=== PATIENT | male | born 1950 | race Caucasian/White ===

== ENCOUNTER 2019-05-22 18:01 | Emergency (ER) | payer MEDICARE, SELFPAY ==
[2019-05-22 18:03] VITALS: BP 188/78; PULSE 51; RESP 18; TEMP 36.8; O2SAT 96; BMI 23.7
--- NOTE | 2019-05-22 18:32 | RAD_ITS ---
STUDY: X-RAY CHEST REASON FOR EXAM: Male, 68 years old. CHEST PAINS. TECHNIQUE: AP portable COMPARISON: None. FINDINGS: There is mild subsegmental atelectasis in both lower lobes greater on the left.. There is no demonstrated pleural abnormality. Normal size heart. Normal mediastinum and chitra. Normal visualized pulmonary arteries. Normal visualized aortic arch and descending thoracic aorta. Normal visualized thoracic spine. Normal visualized ribs, clavicles, and shoulders. There is no demonstrated abnormality of the visualized soft tissue structures of the upper abdomen. RAD/Chest 1 View (Portable) IMPRESSION: Mild bilateral lower lobe atelectasis. Electronically Signed: Joshua Freire MD at 19:21 EST , Service support ,
--- NOTE | 2019-05-22 18:32 | EKG12_ITS ---
Test Reason : CP Blood Pressure : / mmHG Vent. Rate : 046 BPM Atrial Rate : 046 BPM P-R Int : 154 ms QRS Dur : 088 ms QT Int : 442 ms P-R-T Axes : 070 -57 008 degrees QTc Int : 386 ms Sinus bradycardia Left axis deviation Possible Inferior infarct , age undetermined Possible Anterior infarct , age undetermined Abnormal ECG Confirmed by BRYCE RICHARDSON, MARIE ([id number]), continuity editor BERYL CHAIREZ ([id number]) on 05/24/2019 1:36:48 PM Referred By: [place] Confirmed By:MARIE WU MD
--- NOTE | 2019-05-22 18:33 | ED.DCSUM_ITS ---
History of Present Illness Chief Complaint: Chest Pain Informant: Patient Onset: Yesterday Context: Gradual Onset Timing: Waxes and wanes Current Severity: Mild Maximum Severity: Mild Narrative: Patient presents with chest pressure for the past 2 days. He had a STEMI and presented to [facility] on May 07. He was transferred to [facility] where he went straight to the [employer]. 2 stents were placed in the RCA. Patient's echo the following day showed no significant evidence of muscle damage. Patient was discharged to home. Patient states of the past 2 days has had some mild chest pressure. It does seem to be better when he sits down to rest. He denies shortness of breath. He states that he woke up in the middle the night last night with sweats. - Past Medical History (1) Hypertension Status: Chronic (2) High cholesterol Status: Chronic (3) H/O heart artery stent Status: Chronic (4) Coronary artery disease Status: Chronic Past Medical History - Allergies and Home Meds Allergies/Adverse Reactions: Allergies No Known Allergies Allergy (Verified 05/22/19 18:02) Primary Care Physician: NOT,DEFINED [NON-STAFF] - Doctors: Dr Guerrero, cardiology at [facility] Prior records reviewed: Yes Lives: Spouse/ Significant Other Smoking Status: Former smoker Review of Systems General: Denies: Chills, Fever Eyes: Denies: Visual changes - bilaterally ENT: Denies: Bilateral ear pain Cardiovascular: Reports: Chest pain Respiratory: Denies: Dyspnea, Cough Gastrointestinal: Denies: Abdominal pain, Nausea, Vomiting Genitourinary: Denies: Dysuria Musculoskeletal: Denies: Swelling, Extremity Pain Skin: Denies: Rash Neurological: Denies: Headache Hematologic: Denies: Easy bruising Allergy: Denies: Uticaria Physical Exam Vital Signs/Narrative: Vital Signs Temp Pulse Resp BP Pulse Ox 05/22/19 18:03 98.3 F 51 L 18 188/78 H 96 Inital Vital Signs reviewed: Yes General: Well nourished, Well developed Head: Normocephalic ENT: Moist mucous membranes Neck: Supple Cardiovascular: Bradycardia Respiratory: No distress, CTA bilaterally, Chest nontender Abdomen: Soft, Nontender Back: Nontender Extremities: Nontender Skin: Normal color, No rash Neurological: Alert, Oriented x3 Psychological: Normal affect Diagnostic/Tx/Re-eval Impressions Chest X-Ray 05/22/19 18:32 IMPRESSION: Mild bilateral lower lobe atelectasis. Electronically Signed: Joshua Freire MD at 19:21 EST , Service support , 05/22/19 18:32 Chest 1 View (Portable) [RAD] Stat Laboratory Results 05/22/19 05/22/19 18:30 18:30 WBC 8.2 RBC 5.17 Hgb 15.0 Hct 44.8 MCV 86.7 MCH 29.0 MCHC 33.5 RDW Std Deviation 41.1 RDW Coeff of Jerry 13.2 Plt Count 179 MPV 8.9 Immature Gran % (Auto) 0.200 Neut % (Auto) 63.0 Lymph % (Auto) 26.1 [place] % (Auto) 8.2 Eos % (Auto) 2.0 Baso % (Auto) 0.5 Absolute Neuts (auto) 5.1 Absolute Lymphs (auto) 2.13 Nucleated RBC % 0 Sodium 140 Potassium 4.5 Chloride 109 H Carbon Dioxide 27.0 Anion Gap 4 L BUN 15 Creatinine 1.10 Estim Creat Clear Calc 60.09 Est GFR (MDRD) Af Amer 86 Est GFR (MDRD) Non-Af 71 BUN/Creatinine Ratio 13.6 Glucose 111 H Calcium 9.0 Troponin I < 0.015 - EKG Initial EKG Interpretation: Sinus Bradycardia - Sinus bradycardia at 46 bpm with no acute ischemia. - Medical Decision Making Patient was given 3 additional baby aspirin as he had taken 1 this morning. On repeat evaluation he is resting comfortably. When lying back in bed he complains of no pain. If he sits forward and twists he does note a pulling sensation in his chest. I spoke with the patient's drawer in [employer]qu[employer] lo[employer], from [facility]. With the patient having 2 days of symptoms and negative biomarkers he does feel comfortable the patient being discharged home at this time. Patient was advised if he continues to have symptoms he is to call the doctor's office for closer follow-up. If his symptoms worsen in any way or any concerns arise he is to return to the emergency room immediately. Patient was encouraged to call to make his appointment for cardiac rehab. ED Disposition - Plan for ED Patient: Disposition: Home or Assisted Living Diagnosis: Chest pain Instructions: CHEST PAIN, Uncertain Cause Additional Instructions: Follow-up with Dr Guerrero on June 05 as scheduled, or sooner if symptoms persist.
[2019-05-22 18:40] VITALS: O2SAT 95
[2019-05-22] MEDS: Aspirin 81 MG TAB.CHEW 243 MG PO (18:41)
[2019-05-22 18:42] LABS: Absolute Lymphocyte Count 2.13 X10^3/uL (0.83-4.51); Absolute Neutrophil Count 5.1 X10^3/uL (2.0-7.7); Basophil# 0.04 X10^3/uL; Basophil% 0.5 % (0-1); Eosinophil# 0.16 X10^3/uL; Hematocrit 44.8 % (40-54); Lymphocyte # 2.13 X10^3/ul (4.0); Lymphocyte % 26.1 % (19-41); Mean Corp Hgb Conc 33.5 g/dL (32-36); Mean Corpuscular Volume 86.7 fL (80-94); Mean Platelet Vol. 8.9 fl (6.2-12.0); Monocyte# 0.67 X10^3/uL; Monocyte% 8.2 % (0-10); NRBC Flagged by Analyzer 0 % (0-5); Neutrophil # 5.14 X10^3/uL (2.7-7.7); Platelet Count 179 K/mm3 (150-450); RBC Distribution Width CV 13.2 % (11.6-14.6); RBC Distribution Width SD 41.1 fl (35.1-43.9); Red Blood Count 5.17 M/mm3 (4.6-6.2); White Blood Count 8.2 K/mm3 (4.4-11.0)
[2019-05-22 19:01] LABS: Anion Gap 4 (5-15); BUN 15 mg/dL (7-18); BUN/Creat Ratio 13.6 RATIO (10-20); Chloride 109 mmol/L (98-107); EST Glomerular Filtration Rate 71 mL/min (>60); Est Glom Filt Rate - Afr Amer 86 mL/min (>60); Estimated Creatinine Clearance 60.09 ml/min; Glucose 111 mg/dL (74-106); Potassium 4.5 mmol/L (3.5-5.1); Sodium Level 140 mmol/L (136-145)
[2019-05-22] MEDS: 0.9% Normal Saline 1,000 ML 150 ML IV (19:14)
[2019-05-22 20:04] VITALS: BP 158/71; PULSE 44; RESP 16; O2SAT 97
== END 2019-05-22 20:05 | disposition home or self-care (01) ==
PROVIDERS: Emergency Provider Emergency Medicine
DX: R07.89 Other chest pain (principal); I25.2 Old myocardial infarction; I10 Essential (primary) hypertension; E78.00 Pure hypercholesterolemia, unspecified; I25.10 Atherosclerotic heart disease of native coronary artery without angina pectoris; Z95.5 Presence of coronary angioplasty implant and graft; Z87.891 Personal history of nicotine dependence
CPT/HCPCS: 71045; 80048; 84484; 85025; 93005; 96360; 99284; J7030; A4216

== ENCOUNTER 2020-05-28 08:48 | Outpatient (RCR) | payer MEDICARE, SELFPAY ==
[2020-05-28] MEDS: COVID-19 VACC, MRNA(PFIZER)/PF 30 MCG/0.3 ML SYRINGE IM (11:00)
[2020-06-18] MEDS: COVID-19 VACC, MRNA(PFIZER)/PF 30 MCG/0.3 ML SYRINGE IM (10:48)
== END 2020-08-27 23:59 ==
LOC: IMMUN 08:48
PROVIDERS: Visit Provider Family Medicine
DX: Z23 Encounter for immunization (principal)
CPT/HCPCS: 0001A; 0002A; 91300